=== PATIENT | male | born 1960 | race Caucasian/White ===

== ENCOUNTER 2017-06-30 12:28 | Emergency (ER) | payer BC ==
[2017-06-30 12:37] VITALS: BP 146/83
--- NOTE | 2017-06-30 13:52 | ED Physician Documentation ---
History of Present Illness - Stated complaint Stated Complaint: DIZZY/V - Chief complaint Chief Complaint: Neuro - History obtained from History obtained from: Patient - History of Present Illness Timing: Today - Additonal information Additional information: 57-year-old previously well male as developed some acute dizziness and lightheadedness beginning last night. The dizziness was bad enough this morning that he had some vomiting associated with it. He does state that he has been well with the exception of some loss of hearing in the right ear over the past week. He denies any cough or congestion. [facility] Review of Systems Constitutional: denies: Fever Eyes: denies: Decreased vision Ears: reports: Loss of hearing, Tinnitus/ringing. denies: Ear pain Nose: denies: Rhinorrhea / runny nose, Congestion Throat: denies: Sore throat Cardiac: denies: Chest pain / pressure, Palpitations Respiratory: denies: Dyspnea, Cough GI: reports: Nausea, Vomiting. denies: Abdominal Pain, Constipation, Diarrhea : denies: Dysuria, Frequency Skin: denies: Rash Musculoskeletal: denies: Neck pain, Back pain, Extremity pain Neurologic: reports: Other (dizziness). denies: Generalized weakness, Focal weakness, Numbness, Headache, Head injury, LOC PD PAST MEDICAL HISTORY - Past Medical History Past Medical History: No - Past Surgical History Past Surgical History: Yes - Present Medications Home Medications: Ambulatory Orders Medication Instructions Recorded Confirmed Azithromycin [Zithromax] 250 mg PO DAILY #6 tablet 06/30/17 Meclizine HCl 25 mg PO Q6HR PRN #20 tab.chew 06/30/17 - Allergies Allergies/Adverse Reactions: Allergies Allergy/AdvReac Type Severity Reaction Status Date / Time No Known Drug Allergies Allergy Verified 06/30/17 12:36 - Social History Does the pt smoke?: No Smoking Status: Never smoker Does the pt drink ETOH?: No Does the pt have substance abuse?: Yes Substance Use and Type: Marijuana - Immunizations Immunizations are current?: No PD ED PE NORMAL - Vitals Vital signs reviewed: Yes (hypertensive) - General General: Alert and oriented X 3, No acute distress, Well developed/nourished - HEENT HEENT: Atraumatic, PERRL, EOMI, Other (There are 3 beats of nystagmus to the right and to to the left. There is inflammation of the right TM in the attic and distortion of landmarks. The left is clear. The pharynx shows similar inflammation along the right side only.) - Neck Neck: Supple, no meningeal sign, No bony TTP - Cardiac Cardiac: RRR, No murmur - Respiratory Respiratory: No respiratory distress, Clear bilaterally - Abdomen Abdomen: Soft, Non tender - Back Back: No CVA TTP, No spinal TTP - Derm Derm: Normal color, Warm and dry, No rash - Extremities Extremities: No deformity, No edema - Neuro Neuro: No motor deficit, No sensory deficit Eye Opening: Spontaneous Motor: Obeys Commands Verbal: Oriented GCS Score: 15 - Psych Psych: Normal mood, Normal affect Results - Vitals Vitals: Vital Signs - 24 hr 06/30/17 12:33 Temperature 36.4 C L Heart Rate 66 Respiratory 16 Rate Blood Pressure 146/83 H O2 Saturation 99 - Labs Labs: Laboratory Tests 06/30/17 12:42 POC Whole Bld Glucose 107 H Procedures - IVC sono (time) 1335 Bedside IVC sono: IVC measures (cm) (1.24), IVC collapsed c insp (cm) (complete) , Dehydration (mild est 1 liter deficit) PD MEDICAL DECISION MAKING - ED course Complexity details: reviewed results, re-evaluated patient, considered differential, d/w patient ED course: 57-year-old male with acute dizziness has nystagmus and is found to be minimally dehydrated he has otitis media on exam and I suspect this is the cause of his labyrinthian symptoms. He is administered meclinzine and decadron here in the ED. Departure - Departure Disposition: 01 Home, Self Care Clinical Impression: Labyrinthitis of right ear, Dehydration Otitis media Qualifiers: Otitis media type: suppurative Chronicity: acute Laterality: right Recurrence: not specified as recurrent Spontaneous tympanic membrane rupture: without spontaneous rupture Qualified Code(s): H66.001 - Acute suppurative otitis media without spontaneous rupture of ear drum, right ear Condition: Stable Instructions: ED Dehydration, ED Labyrinthitis, ED Otitis Media Acute Adult Follow-Up: Your, doctor [Other] Prescriptions: Meclizine HCl 25 mg PO Q6HR PRN #20 tab.chew PRN Reason: Dizziness Azithromycin [Zithromax] 250 mg PO DAILY #6 tablet
== END 2017-06-30 14:20 | disposition home or self-care (01) ==
LOC: ED 12:28
DX: H83.01 Labyrinthitis, right ear (principal); E86.0 Dehydration
CPT/HCPCS: 99283